=== PATIENT | male | born 1950 | race Caucasian/White ===

== ENCOUNTER 2023-11-11 17:01 | Emergency (ER) | payer OTHER, SELFPAY ==
[2023-11-11 17:10] VITALS: BP 189/82; PULSE 55; O2SAT 97
[2023-11-11 17:15] VITALS: BP 189/82; PULSE 54; RESP 16; TEMP 36.9; O2SAT 98; BMI 31.1
--- NOTE | 2023-11-11 17:17 | [facility].EDGENADL ---
Discharge Plan Disposition Patient Disposition: Home, Self-Care Prescriptions Prescriptions: New prednisone 20 mg tablet 20 mg PO DAILY 5 Days Qty: 5 0RF methocarbamol 750 mg tablet 1,500 mg PO TID 5 Days Qty: 30 0RF lidocaine 5 % adhesive patch,medicated 1 patch topical DAILY Qty: 30 0RF Rx Instructions: leave on most painful area for up to 12 hrs Activity Restrictions/Add. Instructions Additional Instructions/Restrictions: Call your family doctor to establish care for this visit to the emergency department and schedule follow-up within 48 hours to ensure improvement. If you have any worsening of your condition or any other concerning signs or symptoms, return to the emergency department or your primary care doctor for further evaluation. Take prednisone 20 mg each morning for the next 5 days. Be sure to check your sugars throughout today to make sure you are not developing a diabetic emergency while taking prednisone. Robaxin does not usually, but can cause you to feel drowsy. Do not drive, operate heavy machinery, or engage in any activity that may make you tired, fall asleep, and because harm to yourself or others while taking this medication. Clinical Impressions Clinical Impression: Acute left lumbar radiculopathy Instructions Patient Instructions: DI for Low Back Pain Discharge ED Provider: Oliver Acosta General Adult HPI General Chief complaint: Back Pain/Injury Stated complaint: lower Back pain Time Seen by Provider: 11/11/23 17:06 History of Present Illness HPI narrative: Please note that above description of symptoms, in this electronic medical record under categorization of recalled from ER triage doctor by RN are reflective of an initial nursing assessment, however, is not reflective of my full history and physical exam that was personally taken and clarified. Consequentially, this preceding description of symptoms, which may include the patient's categorized chief complaint in the EMR, do not reflect my personal clinical impression, and the ultimate description of history of present illness and patient stated complaints should be deferred to this section of the note. Unless stated otherwise or congruent with this section of the note, additional signs, symptoms, or incongruence should be interpreted as inaccurate with my clinical impression. Related Data Previous Rx's Medication Instructions Recorded lidocaine 5 % topical patch 1 patch topical DAILY #30 ea 11/11/23 methocarbamol 750 mg tablet 1,500 mg (2 x 750 mg) PO TID 5 11/11/23 days #30 tabs prednisone 20 mg tablet 20 mg PO DAILY 5 days #5 tabs 11/11/23 Allergies Allergy/AdvReac Type Severity Reaction Status Date / Time No Known Allergies Allergy Verified 11/11/23 17:20 [facility] Disclaimer: The information contained in this section may have been updated after the patient was seen, as this information can be updated by other users. Social History Smoking Status: Current every day smoker alcohol intake: never current occupational status: retired Travel in the last 8 weeks: None ROS Obtained: Yes All systems reviewed & no additional complaints except as documented Physical Exam General General appearance: alert Head Head exam: atraumatic and normocephalic Eye Eye exam: Present normal appearance, PERRL and EOMI Neck Neck exam: Present normal inspection, full ROM and trachea midline Respiratory Respiratory exam: Absent respiratory distress, wheezes, stridor, accessory muscle use or prolonged expiratory phase Cardiovascular Cardiovascular exam: Present other (Pulses equal symmetric in upper and lower extremities) Abdominal Exam Abdominal exam: Present soft; Absent distention, tenderness or pulsatile mass Extremities Exam Extremities exam: Absent edema Back Exam Back exam: Present full ROM and paraspinal tenderness (left, mild); Absent CVA tenderness (R) or CVA tenderness (L) Neurological Exam Neurological exam: Present alert, oriented X3 and CN II-XII intact; Absent motor sensory deficit Skin Skin exam: Present warm and dry; Absent diaphoresis or erythema Medical Decision Making Medical Records Medical records reviewed: Yes I reviewed the patient's medical records. [employer] Inquiry Pt receiving controlled substance: No Sony was queried for this patient: No Vital Signs: 11/11/23 17:10 11/11/23 17:15 Temperature 98.5 F Temperature Source Oral Pulse Rate 55 L Pulse Rate [Left] 54 L Respiratory Rate 16 Blood Pressure 189/82 H Blood Pressure [Right Arm] 189/82 H Blood Pressure Mean [Right Arm] 117 Blood Pressure Source [Right Arm] Automatic Cuff Blood Pressure Position [Right Arm] Sitting 02 Sat by Pulse Oximetry 97 98 Oxygen Delivery Method Room Air Room Air Lab Data Lab Results 11/11/23 17:11: Urine Color Yellow, Urine Appearance Clear, Urine pH 6.0, Ur Specific [place] 1.025, Urine Protein 2+, Urine Glucose (UA) Negative, Urine Ketones Negative, Urine Blood Negative, Urine Nitrate Negative, Urine Bilirubin Negative, Urine Urobilinogen 0.2, Ur Leukocyte Esterase Negative, Urine RBC None, Urine WBC None, Ur Squamous Epith Cells 3-5, Urine Bacteria Trace Orders (Tests/Meds): ED MEDICATIONS Discontinued Medications Generic Name Dose Route Start Last Admin Trade Name Kyara PRN Reason Stop Dose Admin Lidocaine 1 each 11/11/23 17:13 11/11/23 17:27 Lidocaine 5% Transdermal Patch TP 11/11/23 17:14 1 each ONCE ONE Administration Methocarbamol 1,500 mg 11/11/23 17:13 11/11/23 17:27 Methocarbamol 500mg Tablet PO 11/11/23 17:14 1,500 mg ONCE ONE Administration Prednisone 20 mg 11/11/23 17:13 11/11/23 17:27 Prednisone 20mg Tab PO 11/11/23 17:14 20 mg ONCE ONE Administration ORDERS Category Date Time Status UA [Urinalysis and Microscopic] Stat Lab 11/11/23 17:11 Completed Medical Decision Narrative: 73 old male reported history of hypertension, hyperlipidemia, CAD status post stenting, diabetes, chronic back pain presenting with acute on chronic back pain. Patient states that he has back pains for which he usually follows at the [facility]. flares up once or twice a year, usually sees his family doctor, able to receive muscle relaxers and this improves after 2 or 3 days. Patient states that back pain started yesterday, got worse through today. Has lower back, radiates to the left side and into his left hip/left buttock. No bowel or bladder dysfunction, ambulating without issue. Came in for further evaluation. On arrival, patient hemodynamically stable, very well-appearing. No midline spinal pain on my exam, he does state that he has paraspinal pain on the left but does not exacerbate pain with application of pressure or percussion. No overlying skin changes. Neurologically intact, ambulatory, pulses are equal in upper and lower extremities. No pulsatile abdominal mass. Differential includes radiculopathy, nephrolithiasis, UTI, muscle spasm, among others. Patient given 20 prednisone, Robaxin 1500, lidocaine patch. Urinalysis obtained, this demonstrated no acute abnormalities. Hematologic workup was considered, deemed unnecessary due to very well-appearing patient, near complete resolution with oral medications and lidocaine patch. Imaging of the spine was considered as well including CT scan, but not deemed necessary given neurologically intact patient, no acute injury, very well-appearing, ambulatory, no midline spinal tenderness on my exam. I also feel this is unlikely to be aortic pathology because patient has no pulsatile abdominal mass, neurologic deficits, pulse deficits, or blood in the urine. Patient also feeling much better after oral medication. Because patient at baseline without signs or symptoms of clinical decompensation, deemed appropriate for discharge. Results were relayed to patient who voiced understanding and were agreeable to outpatient management and follow up. I discussed my clinical impression with patient and answered all questions. At this time, the evidence for any other entities in the differential is insufficient to warrant any further testing or ED observation. This was explained as well. Advisory was given that persistent or worsening symptoms require further evaluation. I confirmed the understanding of this discussion. [employer] Teacher disclaimer Much of this encounter note is an electronic director of financial planning spoken language to printed text. Electronic director of financial planning of the spoken language may permit errors. Although I have reviewed the note, some errors may still exist. Critical Care Critical Care Time Critical Care Time: No
[2023-11-11] MEDS: METHOCARBAMOL 500MG TABLET 1500 MG PO (17:27)
[2023-11-11] MEDS: predniSONE 20MG TAB 20 MG PO (17:27)
[2023-11-11] MEDS: LIDOCAINE 5% TRANSDERMAL PATCH 1 EACH TP (17:27)
[2023-11-11 18:27] LABS: Microscopic, Urine URINE MICROSCOPIC (MICROSCOPIC)
[2023-11-11 18:30] LABS: Appearance,Urine CLEAR (Clear); Bilirubin,Urine Negative (Negative); Blood, Urine Negative (Negative); Color,Urine YELLOW (Yellow); Glucose,Urine (UA) Negative (Negative); Ketones,Urine Negative (Negative); Leukocyte Esterase,Urine Negative (Negative); Nitrate,Urine Negative (Negative); Protein,Urine 2+ (Negative); Specific Gravity, Urine 1.025 (1.005-1.030); Urobilinogen,Urine 0.2 EU/dl (0.2)
[2023-11-11 18:38] LABS: Bacteria,Urine Trace /lpf
[2023-11-11 18:47] VITALS: BP 134/80; PULSE 83; RESP 20; TEMP 36.9; O2SAT 96
== END 2023-11-11 18:48 | disposition home or self-care (01) ==
PROVIDERS: Emergency Provider Emergency Medicine
DX: M54.16 Radiculopathy, lumbar region (principal); F17.210 Nicotine dependence, cigarettes, uncomplicated; I10 Essential (primary) hypertension; E78.5 Hyperlipidemia, unspecified; Z86.79 Personal history of other diseases of the circulatory system; Z95.5 Presence of coronary angioplasty implant and graft
CPT/HCPCS: 81001; 99283